=== PATIENT | male | born 1950 | race Native Hawaiian/Other Pacific Islander ===

== ENCOUNTER 2016-06-04 08:45 | Emergency (ER) | payer BC, MEDICARE ==
[~2016-06-04] VITALS: Ht 180.3 cm; Wt 100.0 kg
[~2016-06-04 08:45] MED LIST: COUM5TAB PO; LORT5TAB PO
[2016-06-04 08:48] VITALS: BP 160/90; PULSE 96; RESP 16; TEMP 97.7; O2SAT 97
--- NOTE | 2016-06-04 09:27 | PD ---
HPI Chief Complaint: Pain: Acute or Chronic Time Seen by Provider: 09:03 Travel History International Travel<30 days: No Contact w/Intl Traveler<30days: No Traveled to known affect area: No History of Present Illness HPI Mr. Huff is a 65-year-old previously healthy male, who presents today with complaints of 4 day history of right sided back and chest pain with radiation to his shoulder. The patient reports that it's worse with inspiration and expiration. He states that when he lies flat, the pain is also worse. The pain is intermittent. It is sharp. He denies any fevers, chills. He denies any cough. Initially he stated he was short of breath however when I further questioned him, he reports that it hurts when he breathes but it is not true shortness of breath. The patient denies any nausea or vomiting. He has had a previous cholecystectomy. The patient had returned from [place] on Wednesday. There were 2 hour flights. He denies any calf tenderness or swelling of his lower extremities. PFSH Past Medical History Arthritis: Yes Blood Disorders: No Cancer: No Cardiovascular Problems: No Endocrine: No Genitourinary: No Immune Disorder: No Musculoskeletal: Yes Neurologic: No Psychiatric: No Reproductive: No Respiratory: No Tetanus Vaccination: > 5 Years Past Surgical History Abdominal Surgery: Yes (HÉCTOR; HERNIA REPAIR) Cholecystectomy: Yes Joint Replacement: Yes (RIGHT HIP/LEFT HIP) Oral Surgery: Yes (tonsillectomy) Social History Alcohol Use: Yes (3 margaritas per week) Tobacco Use: No Substance Use: No Allergies-Medications (Allergen,Severity, Reaction): Coded Allergies: No Known Allergies (Unverified , 06/04/16) Reported Meds & Prescriptions Reported Meds & Active Scripts Active Levaquin (Levofloxacin) 500 Mg Tab 500 Mg PO DAILY Review of Systems Except as stated in HPI: all other systems reviewed are Neg General / Constitutional: No: Fever, Chills Cardiovascular: Positive: Chest Pain or Discomfort, No: Palpitations (right sided back and lateral chest), Irregular Rhythm Respiratory: Positive: Pleuritic Pain, No: Cough, Shortness of Breath Gastrointestinal: No: Nausea, Vomiting, Abdominal Pain Musculoskeletal: Positive: Pain (right lateral back), No: Weakness Skin: No Rash Neurologic: No: Weakness, Dizziness Physical Exam Narrative GENERAL: Well-nourished, well-developed patient, in no acute respiratory distress. SKIN: Warm and dry. HEAD: Normocephalic/atraumatic. EYES: No scleral icterus or drainage. NECK: Supple, trachea midline. CARDIOVASCULAR: Regular rate and rhythm without murmurs, gallops, or rubs. RESPIRATORY: Breath sounds equal bilaterally. There appeared to be fine Rales heard at the right lower lung base. There was no rhonchi appreciated. GASTROINTESTINAL: Abdomen soft, non-tender, nondistended. MUSCULOSKELETAL: No cyanosis, or edema. No calf tenderness. BACK: Subjective right flank tenderness with radiation to his right shoulder. NEUROLOGICAL: Awake and alert. Cranial nerves II through XII intact. Motor grossly within normal limits. Five out of 5 muscle strength in all muscle groups. Normal speech. Data Data Last Documented VS Vital Signs Date Time Temp Pulse Resp B/P Pulse Ox O2 Delivery O2 Flow Rate FiO2 06/04/16 09:48 96 06/04/16 09:47 Room Air 06/04/16 09:46 93 18 152/98 06/04/16 08:48 97.7 Orders Electrocardiogram (06/04/16 09:21) Ckmb (Isoenzyme) Profile (06/04/16 09:21) Complete Blood Count With Diff (06/04/16 09:21) Comprehensive Metabolic Panel (06/04/16 09:21) D-Dimer (06/04/16 09:21) Prothrombin Time / Inr (Pt) (06/04/16 09:21) Act Partial Throm Time (Ptt) (06/04/16 09:21) Troponin I (06/04/16 09:21) Ecg Monitoring (06/04/16 09:21) Bilateral Bp Monitoring (06/04/16 09:21) Iv Access Insert/Monitor (06/04/16 09:21) Oximetry (06/04/16 09:21) Oxygen Administration (06/04/16 09:21) Sodium Chloride 0.9% Flush (Ns Flush) (06/04/16 09:30) Chest, Pa & Lat (06/04/16 09:21) CKMB (06/04/16 09:42) CKMB% (06/04/16 09:42) Ct Pulmonary Angiogram (06/04/16 11:02) Iohexol 350 Inj (Omnipaque 350 Inj) (06/04/16 11:27) Labs Laboratory Tests Test 06/04/16 09:42 White Blood Count 11.6 TH/MM3 Red Blood Count 5.87 MIL/MM3 Hemoglobin 16.8 GM/DL Hematocrit 48.6 % Mean Corpuscular Volume 82.8 FL Mean Corpuscular Hemoglobin 28.6 PG Mean Corpuscular Hemoglobin 34.6 % Concent Red Cell Distribution Width 13.1 % Platelet Count 224 TH/MM3 Mean Platelet Volume 8.7 FL Neutrophils (%) (Auto) 80.6 % Lymphocytes (%) (Auto) 8.7 % Monocytes (%) (Auto) 9.6 % Eosinophils (%) (Auto) 0.7 % Basophils (%) (Auto) 0.4 % Neutrophils # (Auto) 9.3 TH/MM3 Lymphocytes # (Auto) 1.0 TH/MM3 Monocytes # (Auto) 1.1 TH/MM3 Eosinophils # (Auto) 0.1 TH/MM3 Basophils # (Auto) 0.0 TH/MM3 CBC Comment DIFF FINAL Differential Comment Prothrombin Time 11.7 SEC Prothromb Time International 1.1 RATIO Ratio Activated Partial 31.9 SEC Thromboplast Time D-Dimer Quantitative (PE/DVT) 1.09 MG/L FEU Sodium Level 136 MEQ/L Potassium Level 3.7 MEQ/L Chloride Level 101 MEQ/L Carbon Dioxide Level 25.9 MEQ/L Anion Gap 9 MEQ/L Blood Urea Nitrogen 11 MG/DL Creatinine 1.17 MG/DL Estimat Glomerular Filtration 63 ML/MIN Rate Random Glucose 112 MG/DL Calcium Level 8.7 MG/DL Total Bilirubin 2.3 MG/DL Aspartate Amino Transf 17 U/L (AST/SGOT) Alanine Aminotransferase 17 U/L (ALT/SGPT) Alkaline Phosphatase 70 U/L Total Creatine Kinase 558 U/L Creatine Kinase MB 1.6 NG/ML Creatine Kinase MB % 0.3 % Troponin I LESS THAN 0.02 NG/ML Total Protein 7.4 GM/DL Albumin 3.4 GM/DL MDM Medical Decision Making Medical Screen Exam Complete: Yes Emergency Medical Condition: Yes Interpretation(s) Last [address] Angiography 06/04/16 1102 Signed Impressions: Service Date/Time: May 11:19 - CONCLUSION: 1. No evidence of pulmonary embolism. 2. Patchy infiltrate in the right lower lobe with minimal right effusion. The findings are most characteristic of early pneumonia. Gustavo Martinez MD Chest X-Ray 06/04/16 0921 Signed Impressions: Service Date/Time: May 09:39 - CONCLUSION: No acute disease. Gustavo Martinez MD Differential Diagnosis Pneumonia versus pulmonary embolus versus pleurisy Narrative Course 65-year-old gentleman who presents with right sided pleuritic chest pain. The patient has no reported fevers chills. The patient did have a recent plane ride it was over 2 hours. D-dimer was elevated. CT scan to rule out PE showed a right lower lobe early infiltrate suggestive of early pneumonia. There is no evidence of pulmonary embolism. Cardiac workup was negative. We'll start him on Levaquin 500 milligrams daily 10 days. He is instructed to follow up with his primary care physician. He is also started return of he develops any worsening symptoms i.e. shortness breath, fevers chills, or any other reason that concerned him. Nurse's notes were evaluated and noted with past medical and surgical history was noted by this physician. Diagnosis Primary Impression: Right lower lobe pneumonia Additional Instructions: Return if worsening shortness of breath, fevers chills, or any other reason that concerned you. Med/Other Pt SpecificInfo: Prescription(s) given Scripts Levofloxacin (Levaquin)500 Mg [id number] Mg PO DAILY #10 TAB Ref 0 Prov:Hector Dempsey MD 06/04/16 Disposition: 01 DISCHARGE HOME Condition: Stable Hector Dempsey MD Jun 04, 2016 09:27 Hector Dempsey MD Jun 04, 2016 09:27
[2016-06-04] MEDS ORDERED: SODIUM CHLORIDE 0.9% FLUSH 5 ML FLUSH IVF PRN (09:30)
[2016-06-04 09:46] VITALS: BP 152/98; PULSE 93; RESP 18; O2SAT 98
[2016-06-04 09:48] VITALS: O2SAT 96
--- NOTE | 2016-06-04 09:51 | RADRPT ---
EXAM DATE/TIME: 06/04/2016 09:39 [facility] COMPARISON: No previous studies available for comparison. INDICATIONS : Chest pain. MEDICAL HISTORY : None. SURGICAL HISTORY : None. ENCOUNTER: Initial ACUITY: 2 days PAIN SCORE: 5/10 LOCATION: Right upper chest FINDINGS: PA and lateral views of the chest demonstrate the lungs to be symmetrically aerated without evidence of mass, infiltrate or effusion. The cardiomediastinal contours are unremarkable. Osseous structure s are intact. There are multiple overlying electrocardiogram leads. CONCLUSION: No acute disease. Gustavo Martinez MD on June 04, 2016 at 9:49 Board Certified Radiologist. This report was verified electronically.
[2016-06-04 09:56] LABS: AUTOMATED NEUTROPHIL # 9.3 TH/MM3 (1.8-7.7); BASOPHIL % 0.4 % (0.0-2.0); EOSINOPHIL # 0.1 TH/MM3 (0-0.4); EOSINOPHIL % 0.7 % (0.0-4.0); HEMATOCRIT 48.6 % (39.0-51.0); HEMO FLAGS DIFF FINAL; LYMPH % 8.7 % (9.0-44.0); MEAN CELL VOLUME 82.8 FL (80.0-100.0); MEAN CORPUSCULAR HEMOGLOBIN 28.6 PG (27.0-34.0); MEAN CORPUSCULAR HGB CONC 34.6 % (32.0-36.0); MONO % 9.6 % (0.0-8.0); NEUT % 80.6 % (16.0-70.0); PLATELET COUNT 224 TH/MM3 (150-450); RED BLOOD COUNT 5.87 MIL/MM3 (4.50-5.90); RED CELL DISTRIBUTION WIDTH 13.1 % (11.6-17.2); WHITE BLOOD COUNT 11.6 TH/MM3 (4.0-11.0)
[2016-06-04 10:08] LABS: APTT (PATIENT) 31.9 SEC (24.3-30.1); INTERNATIONAL NORMALIZED RATIO 1.1 RATIO; PROTHROMBIN TIME - PATIENT 11.7 SEC (9.8-11.6)
[2016-06-04 10:21] LABS: ANION GAP 9 MEQ/L (5-15); AST (GOT) 17 U/L (15-37); BICARBONATE 25.9 MEQ/L (21.0-32.0); BLOOD UREA NITROGEN 11 MG/DL (7-18); CHLORIDE 101 MEQ/L (98-107); GLOMERULAR FILTRATION RATE 63 ML/MIN (>89); POTASSIUM 3.7 MEQ/L (3.5-5.1); SODIUM (NA) 136 MEQ/L (136-145)
[2016-06-04 10:25] LABS: ALKALINE PHOSPHATASE 70 U/L (45-117); ALT (GPT) 17 U/L (12-78); CREATINE KINASE 558 U/L (39-308); TOTAL BILIRUBIN ADULT 2.3 MG/DL (0.2-1.0)
[2016-06-04 10:38] LABS: CKMB 1.6 NG/ML (0.5-3.6)
[2016-06-04] MEDS ORDERED: IOHEXOL 350 MG/ML 10 ML VIAL (for RAD DIAG) IV ONE (11:27)
--- NOTE | 2016-06-04 11:37 | RADRPT ---
EXAM DATE/TIME: 06/04/2016 11:19 [facility] COMPARISON: CHEST PA & LAT, June 04, 2016, 9:39. INDICATIONS : Right side back/chest pain for 4 days. IV CONTRAST: 50 cc Omnipaque 350 (iohexol) IV RADIATION DOSE: 18.27 CTDIvol (mGy) MEDICAL HISTORY : None SURGICAL HISTORY : Cholecystectomy. Hernia repair, hip replacement ENCOUNTER: Initial ACUITY: 4 - 6 days PAIN SCALE: 5/10 LOCATION: Right chest TECHNIQUE: Volumetric scanning of the chest was performed using a pulmonary embolism protocol MIP images were re constructed. Using automated exposure control and adjustment of the mA and/or kV according to patien t size, radiation dose was kept as low as reasonably achievable to obtain optimal diagnostic quality images. FINDINGS: PULMONARY ARTERIES: No filling defects are seen in the pulmonary arteries through the segmental level. LUNGS: There is no pneumothorax . There is patchy infiltrate in the right posterior lower lobe. No concernin g pulmonary nodule is visualized. PLEURAE: There is a minimal right effusion. MEDIASTINUM: There is good visualization of the great vessels of the middle mediastinum. No evidence of mediastin al or hilar adenopathy/mass. Mild coronary artery calcifications are present. MUSCULOSKELETAL: Within normal limits for patient age. MISCELLANEOUS: The visualized upper abdominal organs demonstrate no acute abnormality. The patient is status post ch olecystectomy. There is a small hiatal hernia. CONCLUSION: 1. No evidence of pulmonary embolism. 2. Patchy infiltrate in the right lower lobe with minimal right effusion. The findings are most aubrey cteristic of early pneumonia. Gustavo Martinez MD on June 04, 2016 at 11:33 Board Certified Radiologist. This report was verified electronically.
[2016-06-04] MEDS ORDERED: LEVA500T PO (12:00)
--- NOTE | 2016-06-04 13:39 | EKG ---
Date Performed: 06/04/2016 Time Performed: 09:53:41 PTAGE: 65 years EKG: Sinus rhythm NORMAL ECG NO PREVIOUS TRACING DOCTOR: Arthur Vargas Interpretating Date/Time 06/04/2016 13:37:37
== END 2016-06-04 12:31 | disposition home or self-care (01) ==
LOC: NEPC 08:45
DX: J18.9 Pneumonia, unspecified organism (principal)
CPT/HCPCS: 71020; 71275; 80053; 82550; 82552; 84484; 85025; 85379; 85610; 85730; 93005; 99285; Q9967

== ENCOUNTER 2016-06-23 10:09 | Emergency (ER) | payer MEDICARE ==
[~2016-06-23 10:09] MED LIST changes: -COUM5TAB PO; +LEVA500T PO; -LORT5TAB PO
[2016-06-23 10:11] VITALS: BP 159/97; PULSE 89; RESP 15; TEMP 98.1; O2SAT 98
--- NOTE | 2016-06-23 10:34 | PD ---
HPI Chief Complaint: Edema Time Seen by Provider: 10:33 Travel History International Travel<30 days: No Contact w/Intl Traveler<30days: No Traveled to known affect area: No History of Present Illness HPI 65-year-old male came to the emergency room with history of bilateral lower extremity pain mainly at his calf area. He describes the pain worse in the right leg than the left. This has been going on for 2 weeks. Patient has had prolonged immobilizations states while he was in the hospital 2 weeks ago once in the emergency room and second time in the [facility]. His brought him in because she was concerned for DVT. He did not notice any leg swelling. He thinks that his ankles are little swollen however. Vital signs stable. No history of chest pain or shortness of breath. [facility] Past Medical History Narrative Medical List of his past medical, surgical and social history has been reviewed from the nursing note. Arthritis: Yes Blood Disorders: No Cancer: No Cardiovascular Problems: No Endocrine: No Genitourinary: No Immune Disorder: No Implanted Vascular Access Dvce: Yes Musculoskeletal: Yes Neurologic: No Psychiatric: No Reproductive: No Respiratory: No Past Surgical History Abdominal Surgery: Yes (HÉCTOR; HERNIA REPAIR) Cholecystectomy: Yes Joint Replacement: Yes (RIGHT HIP/LEFT HIP) Oral Surgery: Yes (tonsillectomy) Other Surgery: Yes Social History Alcohol Use: Yes (social) Tobacco Use: No Substance Use: No Allergies-Medications (Allergen,Severity, Reaction): Coded Allergies: No Known Allergies (Unverified , 06/23/16) Comments No known drug allergies. Reported Meds & Prescriptions Reported Meds & Active Scripts Active No Active Prescriptions or Reported Medications Narrative Medication List of his home medications reviewed from the nursing note. Review of Systems Except as stated in HPI: all other systems reviewed are Neg Physical Exam Narrative GENERAL: Awake, alert, no obvious distress SKIN: Warm and dry. HEAD: Atraumatic. Normocephalic. EYES: Pupils equal and round. No scleral icterus. No injection or drainage. ENT: No nasal bleeding or discharge. Mucous membranes pink and moist. NECK: Trachea midline. No JVD. CARDIOVASCULAR: Regular rate and rhythm. No murmur appreciated. RESPIRATORY: No accessory muscle use. Clear to auscultation. Breath sounds equal bilaterally. GASTROINTESTINAL: Abdomen soft, non-tender, nondistended. Hepatic and splenic margins not palpable. MUSCULOSKELETAL: No obvious deformities. No clubbing. No cyanosis. No edema. Distal pulses are intact. Good cap refill NEUROLOGICAL: Awake and alert. No obvious cranial nerve deficits. Motor grossly within normal limits. Normal speech. PSYCHIATRIC: Appropriate mood and affect; insight and judgment normal. Data Data Last Documented VS Orders Us Leg Venous Doppler Bilat (06/23/16 ) MDM Medical Decision Making Medical Screen Exam Complete: Yes Emergency Medical Condition: Yes Medical Record Reviewed: Yes Differential Diagnosis DVT, muscular pain, Capone cyst Narrative Course 12:15 PM ultrasound was completely within normal limits. Patient is reassured by that. I will discharge him home. Procedures EKG Prior to Arrival: No Diagnosis Primary Impression: Bilateral leg pain Additional Impression: Muscular pain Referrals: Primary Care Physician 2 days Additional Instructions: Please take Motrin/Tylenol/ibuprofen/Advil for the pain. Follow-up with your primary care if symptoms do not get better. Return to the ER if symptoms worsen or any other new concerns. Med/Other Pt SpecificInfo: No Change to Meds Scripts No Active Prescriptions or Reported Meds Disposition: DISCHARGE HOME Condition: Precious Rodriguez MD Jun 23, 2016 10:33 Med/Other Pt SpecificInfo: No Change to Meds Scripts No Active Prescriptions or Reported Meds Disposition: DISCHARGE HOME Condition: Precious Rodriguez MD Jun 23, 2016 10:33
--- NOTE | 2016-06-23 12:02 | RADRPT ---
EXAM DATE/TIME: 06/23/2016 10:54 [facility] COMPARISON: No previous studies available for comparison. INDICATIONS : Bilateral leg pain and swelling. MEDICAL HISTORY : Leg pain bilaterally. SURGICAL HISTORY : Cholecystectomy. Hernia repair. Hip replacement. ENCOUNTER: Initial ACUITY: 3 weeks PAIN SCORE: 3/10 LOCATION: Bilateral legs. TECHNIQUE: Venous ultrasound of the left and right leg was performed from the inguinal ligament to the proximal calf. Real-time, color Doppler and spectral tracing, compression and augmentation techniques were us ed. FINDINGS: RIGHT LEG: There is normal compressibility of the deep venous system from the inguinal region to the proximal ca lf. No echogenic clot is seen in the lumen of the common femoral, femoral, popliteal, and posterior tibial veins. There is a normal response of the venous system to proximal and distal augmentation an d respiration. LEFT LEG: There is normal compressibility of the deep venous system from the inguinal region to the proximal ca lf. No echogenic clot is seen in the lumen of the common femoral, femoral, popliteal, and posterior tibial veins. There is a normal response of the venous system to proximal and distal augmentation an d respiration. CONCLUSION: No DVT in either leg. Eddie Rae MD on June 23, 2016 at 11:59 Board Certified Radiologist. This report was verified electronically.
[2016-06-23 12:31] VITALS: BP 139/88; PULSE 76; RESP 13; O2SAT 95
== END 2016-06-23 12:49 | disposition home or self-care (01) ==
LOC: NEPA 10:09
DX: M79.604 Pain in right leg (principal); M79.605 Pain in left leg; M79.1 Myalgia
CPT/HCPCS: 93970